=== PATIENT | female | born 1980 | race Hispanic/Latino ===

== ENCOUNTER 2018-07-07 21:27 | Emergency (ER) | payer BC ==
[~2018-07-07] VITALS: Ht 157.5 cm; Wt 81.0 kg
[~2018-07-07 21:27] MED LIST: IBUPROFEN600 MG PO; IRON325 M1 PO; OB COMPLET2 PO; TYLENOL325 MG; TYLENOL325 MG PO
[2018-07-07 21:52] LABS: URINE BILIRUBIN - DIPSTICK NEGATIVE (NEGATIVE); URINE BLOOD DIPSTICK LARGE (NEGATIVE); URINE GLUCOSE - DIPSTICK NEGATIVE (NEGATIVE); URINE KETONE NEGATIVE (NEGATIVE); URINE LEUK ESTERASE TRACE (NEGATIVE); URINE NITRITE - DIPSTICK NEGATIVE (Negative); URINE PH 5.5 (4.5-8.0); URINE PROTEIN - DIPSTICK NEGATIVE (NEG-TRACE); URINE UROBILINOGEN - DIPSTICK 0.2 E.U./dL (0.2)
[2018-07-07 21:55] LABS: URINE COLOR STRAW
[2018-07-07 22:02] LABS: URINE SQUAMOUS EPITHELIAL CELL FEW EPI/hpf (0-FEW)
[2018-07-07 22:10] LABS: HEMATOCRIT 32.1 % (37.0-47.0); HEMOGLOBIN 10.2 g/dl (12.0-16.0); IMMATURE GRANULOCYTES 0.4 % (0.0-5.0); MEAN CORPUSCULAR HGB 25.1 pG CALC (26.0-32.0); MEAN CORPUSCULAR HGB CONC 31.8 g/L CALC (32.0-36.0); NEUT# 5.01 thou/uL (2.00-7.15); RED BLOOD COUNT 4.06 mill/uL (4.20-5.60); RED CELL DISTRI WIDTH 14.6 % (11.5-15.5)
[2018-07-07 22:14] LABS: MEAN CELL VOLUME 79.1 fL CALC (80.0-100.0)
[2018-07-07 22:23] LABS: ANION GAP 14 (6-22 (CALC)); BILIRUBIN, TOTAL 0.2 mg/dL (0.0-1.4); BUN 12 mg/dL (7-17); BUN/CREATININE RATIO 23 (12-20 (CALC)); CARBON DIOXIDE 23 mmol/l (22-30); CHLORIDE 105 mmol/l (95-108); CREATININE 0.5 mg/dL (0.5-1.0); GFR > 60 ML/MIN (>=60 (CALC)); GFR FOR AFR.AMER. > 60 ML/MIN (>=60 (CALC)); POTASSIUM 3.8 mmol/l (3.5-5.1); SGOT/AST 22 u/l (14-36); SODIUM 138 mmol/l (137-146)
[2018-07-07 22:28] LABS: ALBUMIN 4.2 g/dL (3.2-5.0); ALKALINE PHOSPHATASE 87 u/l (38-126)
[2018-07-07 23:10] VITALS: BP 113/68
== END 2018-07-07 23:14 | disposition home or self-care (01) | DRG 833 ==
LOC: ED 21:27
PROVIDERS: Emergency Medicine
DX: O20.0 Threatened abortion (principal); O99.331 Smoking (tobacco) complicating pregnancy, first trimester; F17.200 Nicotine dependence, unspecified, uncomplicated; Z3A.01 Less than 8 weeks gestation of pregnancy

== ENCOUNTER → 2018-07-09 | Outpatient (REF) | END | disposition home or self-care (01) | DRG 833 | LOC: LAB 15:49 | DX: O20.0 Threatened abortion (principal) ==

== ENCOUNTER → 2018-07-10 | Outpatient (REF) | END | disposition home or self-care (01) | DRG 833 | LOC: LAB 16:24 | DX: O20.0 Threatened abortion (principal) ==